=== PATIENT | female | born 1965 | race Caucasian/White ===

== ENCOUNTER 2020-05-17 18:12 | Emergency (ER) | payer OTHER ==
--- NOTE | 2020-05-17 18:48 | ED Physician Documentation ---
PD HPI CHEST PAIN - Stated complaint Stated Complaint: TIGHT CHEST/HEADACHE - Chief complaint Chief Complaint: Cardiac - History obtained from History obtained from: Patient - Additional information Additional information: Previously healthy 54-year-old woman has had profound fatigue chest tightness and mild headache for the last 2 days. The chest tightness is worse than the headache. Nothing makes either better or worse. There is no exertional component to the chest tightness. No shortness of breath or cough. No abdominal complaints. No dark or tarry stools. No recent travel. No pedal e candida or calf pain. Review of Systems Ten Systems: 10 systems reviewed and negative Constitutional: reports: Fatigue. denies: Fever, Chills Nose: denies: Rhinorrhea / runny nose, Congestion Cardiac: reports: Chest pain / pressure. denies: Palpitations, Pedal edema, Calf pain PD PAST MEDICAL HISTORY - Allergies Allergies/Adverse Reactions: Allergies Allergy/AdvReac Type Severity Reaction Status Date / Time ibuprofen [From Motrin] Allergy Hives Verified 05/17/20 18:23 PD ED PE NORMAL - Vitals Vital signs reviewed: Yes - General General: Alert and oriented X 3, No acute distress - HEENT HEENT: PERRL, EOMI - Neck Neck: Supple, no meningeal sign, No bony TTP - Cardiac Cardiac: RRR, No murmur - Respiratory Respiratory: No respiratory distress, Clear bilaterally - Abdomen Abdomen: Non tender - Back Back: No CVA TTP, No spinal TTP - Derm Derm: Normal color, Warm and dry - Extremities Extremities: No edema - Neuro Neuro: Alert and oriented X 3, Normal speech Results - Vitals Vitals: Vital Signs - 24 hr 05/17/20 05/17/20 05/17/20 18:19 18:51 19:19 Temperature 36.7 C Heart Rate 75 75 81 Respiratory 18 14 18 Rate Blood Pressure 151/82 H 162/93 H 136/91 H O2 Saturation 99 98 99 05/17/20 19:33 Temperature Heart Rate 82 Respiratory 18 Rate Blood Pressure 132/81 H O2 Saturation 98 Oxygen O2 Source Room air - EKG (time done) 1822 Rate: Rate (enter#) (78) Rhythm: NSR [place]: Normal Intervals: Normal [place] QRS: Normal Ischemia: Normal ST segments Computer interpretation: Agree with computer - Labs Labs: Laboratory Tests 05/17/20 05/17/20 05/17/20 18:40 18:40 18:40 WBC 6.8 RBC 4.76 Hgb 15.3 Hct 46.1 MCV 96.8 MCH 32.1 H MCHC 33.2 RDW 13.0 Plt Count 219 MPV 9.2 Neut # (Auto) 3.1 Lymph # (Auto) 3.0 [place] # (Auto) 0.5 Eos # (Auto) 0.1 Baso # (Auto) 0.0 Absolute Nucleated RBC 0.00 Nucleated RBC % 0.0 Sodium 138 Potassium 3.8 Chloride 105 Carbon Dioxide 26 Anion Gap 7.0 BUN 13 Creatinine 0.9 Estimated GFR (MDRD) 65 L Glucose 102 H Calcium 9.4 Total Bilirubin 0.7 AST 19 ALT 16 Alkaline Phosphatase 92 Troponin I High Sens < 2.3 L Total Protein 7.6 Albumin 4.3 Globulin 3.3 Albumin/Globulin Ratio 1.3 Lipase 42 - Rads (name of study) 1v chest Radiology: EMP read contemporaneously (normal) PD MEDICAL DECISION MAKING - ED course ED course: 54-year-old woman presents with nonspecific fatigue, chest tightness. Troponin is undetectable which given 2 days of solid symptoms should be predictive. Her main worry was coronavirus and a test was done and she will home quarantine until negative. Departure - Departure Disposition: 01 Home, Self Care Clinical Impression: Chest pain Qualifiers: Chest pain type: unspecified Qualified Code(s): R07.9 - Chest pain, unspecified Fatigue Qualifiers: Fatigue type: unspecified Qualified Code(s): R53.83 - Other fatigue Condition: Good Record reviewed to determine appropriate education?: Yes Instructions: ED Chest Pain NonCardiac Comments: No clear cause of your symptoms was found today, you are not anemic, chest x-ray was normal. High-sensitivity troponin was negative. Return for new or worsening symptoms. Coronavirus testing will be done and we will call if positive. Keep an eye on the patient portal and home quarantine until negative. Follow-up with your primary care physician, next available appointment. Discharge Date/Time: 05/17/20 19:39
[2020-05-17 18:57] LABS: BASOPHILS % (AUTO) 0.4 %; EOSINOPHILS # (AUTO) 0.1 10^3/uL (0.0-0.7); EOSINOPHILS % (AUTO) 2.1 %; HGB - HEMOGLOBIN 15.3 g/dL (12.0-16.0); LYMPHOCYTES % (AUTO) 44.1 %; MEAN CORPUSCULAR HEMOGLOBIN 32.1 pg (27.0-31.0); MEAN CORPUSCULAR HGB CONC 33.2 g/dL (32.0-36.0); MEAN CORPUSCULAR VOLUME 96.8 fL (81.0-99.0); MEAN PLATELET VOLUME 9.2 fL (7.9-10.8); MONOCYTES # (AUTO) 0.5 10^3/uL (0.0-1.0); MONOCYTES % (AUTO) 7.2 %; NEUTROPHILS # (AUTO) 3.1 10^3/uL (1.5-6.6); NEUTROPHILS % (AUTO) 45.9 %; PLT - PLATELET COUNT 219 10^3/uL (130-450); RED BLOOD COUNT 4.76 10^6/uL (4.20-5.40); WHITE BLOOD COUNT 6.8 x10^3/uL (4.8-10.8)
--- NOTE | 2020-05-17 19:05 | XRAY Report ---
PROCEDURE: Chest 1 View X-Ray INDICATIONS: Chest pain TECHNIQUE: One view of the chest was acquired. COMPARISON: None FINDINGS: Surgical changes and devices: None. Lungs and pleura: No pleural effusions or pneumothorax. Lungs are clear. Mediastinum: Mediastinal contours appear normal. Heart size is normal. Bones and chest wall: No suspicious bony lesions. Overlying soft tissues appear unremarkable. IMPRESSION: No acute cardiopulmonary pathology. Reviewed by: Donal Ritter MD on 05/17/2020 7:04 PM PDT Approved by: Donal Ritter MD on 05/17/2020 7:04 PM PDT Station ID: [id number]
[2020-05-17 19:12] LABS: ALBUMIN 4.3 g/dL (3.2-5.5); ALBUMIN/GLOBULIN RATIO 1.3 (1.0-2.2); BILIRUBIN,TOTAL 0.7 mg/dL (0.2-1.0); CALCIUM 9.4 mg/dL (8.5-10.3); CREATININE 0.9 mg/dL (0.4-1.0); TOTAL PROTEIN 7.6 g/dL (6.7-8.2)
[2020-05-17 19:33] VITALS: BP 132/81
== END 2020-05-17 19:39 | disposition home or self-care (01) ==
LOC: ED 18:12
DX: R07.9 Chest pain, unspecified (principal); R53.83 Other fatigue; Z20.828 Contact with and (suspected) exposure to other viral communicable diseases
CPT/HCPCS: 36415; 71045; 80053; 83690; 84484; 85025; 93005; 99284

== ENCOUNTER 2022-03-26 14:45 | Outpatient (CLI) | payer OTHER ==
[2022-03-26] MEDS ORDERED: GADOBUTROL 7.5 MMOL/7.5 ML VIAL ONE (15:11)
--- NOTE | 2022-03-26 18:56 | MRI Report ---
PROCEDURE: MRI brain with and without contrast INDICATIONS: DISORIENTATION CONTRAST: IV CONTRAST: Gadavist ml: 7.5 TECHNIQUE: Noncontrast axial T1 spin echo, axial T2 fast spin echo, sagittal and axial FLAIR, coronal T2 fast sp in echo, axial gradient echo, axial diffusion and ADC through the brain. After the administration of contrast, axial and coronal T1 spin echo with fat saturation through the brain. COMPARISON: None. FINDINGS: Image quality: Excellent. CSF spaces: Basal cisterns are patent. No extra-axial fluid collections. Ventricles are normal in size and shape. Brain: In the mid left cingulate gyrus, there is an 8 mm ringed focus of old blood products associat ed with a small subcortical tangle of vessels and transcortical spice blender vein draining to the deep v enous system. Additionally, nonspecific white matter hyperintensity noted in the subcortical right frontal as well as left temporal lobe No midline shift. No abnormal intracranial enhancement. There is cerebral volume loss for age. The brainstem appears normal. Diffusion-weighted images demonstrate no acute infarct. Normal intravasc ular flow voids are present. Skull and face: Calvarial marrow is normal in signal. Orbits appear normal. Sinuses: Sinuses and mastoids appear clear. IMPRESSION: 1. 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 2. Nonspecific white matter hyperintensities in the right frontal and left temporal lobe. Differentia l possibilities include chronic ischemic change, migrainous vasculopathy, and less likely sequela of prior trauma or infection. Reviewed by: Luis Rodrigez MD on 03/26/2022 5:55 PM [place] Approved by: Luis Rodrigez MD on 03/26/2022 5:55 PM [place] Station ID: [id number]
== END 2022-03-26 14:46 | disposition home or self-care (01) ==
LOC: DI 14:45
PROVIDERS: ATTEND Student in an Organized Health Care Education/Training Program
DX: D18.02 Hemangioma of intracranial structures (principal)
CPT/HCPCS: 70553; A9585